=== PATIENT | female | born 1950 | race African-American/Black ===

== ENCOUNTER 2018-08-05 12:29 | Emergency (ER) | payer BC ==
[~2018-08-05] VITALS: Ht 152.4 cm; Wt 75.8 kg
[2018-08-05] MEDS ORDERED: PHENOBARBITAL100 MG PO (12:38)
[2018-08-05] MEDS ORDERED: MOBIC7.5 MG PO (13:03)
[2018-08-05] MEDS ORDERED: ULTRAM 50MG TAB50 MG PO (13:03)
[2018-08-05 13:34] VITALS: BP 154/94
== END 2018-08-05 13:25 | disposition home or self-care (01) ==
LOC: ER 12:29
DX: S52.514A Nondisplaced fracture of right radial styloid process, initial encounter for closed fracture (principal); W23.1XXA Caught, crushed, jammed, or pinched between stationary objects, initial encounter; Y92.89 Other specified places as the place of occurrence of the external cause; Y93.89 Activity, other specified; Y99.8 Other external cause status